=== PATIENT | female | born 1930 | race Caucasian/White ===

== ENCOUNTER 2017-09-17 06:11 | Day surgery (SDC) | payer OTHER ==
[~2017-09-17 06:11] MED LIST: ENALAPRIL MALEA20 MG PO; GABAPENTIN800 MG PO; LANTUS SOL100 UNIT/1; PLAVIX75 MG PO; SYNTHROID75 MCG PO; TOPROL XL100 M1 PO; VITAMIN C1000 MG PO; [UNRECOGNIZED DRUG - OTHER]
[2017-09-17] MEDS ORDERED: KEFLEX500 MG PO (09:29)
[2017-09-17] MEDS ORDERED: TRAMADOL HCL50 MG PO (09:30)
== END 2017-09-17 15:25 | disposition home or self-care (01) ==
LOC: CIR.AMB 06:11 → SURH 08:42 → EDSTATUS 08:43 → CIR.AMB 08:44
DX: N13.0 Hydronephrosis with ureteropelvic junction obstruction (principal); N21.0 Calculus in bladder